=== PATIENT | female | born 1990 | race Caucasian/White ===

== ENCOUNTER 2022-06-27 21:14 | Emergency (ER) | payer MEDICAID, SELFPAY ==
[2022-06-27 21:15] VITALS: BP 122/62; PULSE 113; RESP 14; TEMP 37.1; O2SAT 100; BMI 30.1
[2022-06-27] MEDS: Naproxen 500 MG Tablet PO (22:02)
[2022-06-27] MEDS: Ondansetron ODT 4 MG Tablet PO (22:02)
[2022-06-28] MEDS: Acetaminophen 500 MG Tablet 1000 MG PO (00:11)
--- NOTE | 2022-06-28 00:11 | EDS_ITS ---
HPI History of Present Illness Chief Complaint: Nausea/Vomiting/Diarrhea Detail of Chief Complaint: Cough, chills, sore throat Informant: patient Onset/Context/Timing Onset: Today Current Severity: Moderate Maximum Severity: Moderate Narrative Narrative: Patient presents with complaints of body aches, sore throat, cough, nausea. She reportedly was exposed to someone with influenza A. She took NyQuil earlier this morning for her symptoms but has not had anything since. [facility] Medical History Anxiety Asthma Smoker Substance abuse Home Medications NK 06/27/22 [History Last Taken Unknown] Allergy/AdvReac Type Severity Reaction Status Date / Time No Known Allergies Allergy Verified 06/27/22 21:15 Social History Smoking Status: Current some day smoker tobacco type: cigarettes ROS ROS ED Constitutional Constitutional ED: Reports chills, fever(s) and subjective Eyes Eyes: Denies change in vision or discharge from eye(s) ENT ENT ED: Reports sore throat and other Details: Congestion ; Denies discharge from eye(s) or rhinorrhea Cardiovascular Cardiovascular: Denies chest pain or palpitations Respiratory/Chest Respiratory/Chest: Reports cough; Denies dyspnea Gastrointestinal Gastrointestinal: Reports abdominal pain, nausea and vomiting; Denies diarrhea Genitourinary Genitourinary ED: Denies dysuria Musculoskeletal Musculoskeletal: Reports myalgias; Denies back pain or extremity pain Integumentary Denies Abrasions or rash Neurologic Neurologic: Reports headache(s); Denies weakness Psychiatric Psychiatric: Denies anxiety or depression Allergic/Immunologic Allergic/Immunologic ED: Denies lip swelling or urticaria EXAM Physical Exam Const Vital Signs: 06/27/22 21:15 Temperature 98.7 F Temperature Source Temporal Pulse Rate 113 H Respiratory Rate 14 Blood Pressure 122/62 H Blood Pressure Mean 82 Pulse Ox 100 Oxygen Delivery Method Room Air Positive well nourished and well developed General Appearance ED: well developed HEENT Reports normocephalic and head/scalp atraumatic HEENT Narrative: 2+ tonsils. Uvula midline. No exudate. Eyes PERRL and EOMs intact bilaterally Neck supple Chest Wall inspection of chest normal and palpation of chest normal Resp normal respiratory effort and clear to auscultation bilaterally Cardio regular rhythm Rate: tachycardic GI GI Narrative: Abdomen is soft with no focal tenderness. Hypoactive but present bowel sounds noted. Palpation: soft Extremity normal to inspection Neuro oriented x3 and no sensory deficits noted Sensorium / Orientation: alert Motor Exam: strength 5/5 throughout Psych Mood & Affect: anxious Skin no rashes or lesions noted MDM MDM MDM Narrative Medical decision making narrative: Patient given Naprosyn and Zofran. COVID and influenza swab obtained. Treatment and Re-Evaluation Narrative: Swab for COVID and influenza are negative. At that time patient given Tylenol and throat lozenges. Rapid strep obtained and is negative. Patient advised that her symptoms are all viral in nature and need to run their course. Supportive care is discussed. Discharge Plan Triage Chief Complaint: Nausea/Vomiting/Diarrhea ED Provider: Ayanna Bautista Dx/Rx/DC Orders Clinical Impression: Viral syndrome Instructions: ED Viral Syndrome (Adult) Prescriptions: No Action NK Primary Care Provider: Care Physician,No Primary Referrals: Fast,Kesha, DO [Med Staff - Public Affairs Specialist] - As Needed Care Physician,No Primary [Primary Care Provider] - Disposition Disposition: Home, Self Care
[2022-06-28] MEDS: BENZOCAINE/MENTHOL 1 LOZENGE MUCOUS MEM (00:23)
[2022-06-28 00:25] VITALS: TEMP 37.1
== END 2022-06-28 00:26 | disposition home or self-care (01) ==
PROVIDERS: Emergency Provider Emergency Medicine; Visit Provider Emergency Medicine
DX: B34.9 Viral infection, unspecified (principal); F17.210 Nicotine dependence, cigarettes, uncomplicated; R11.2 Nausea with vomiting, unspecified; R19.7 Diarrhea, unspecified; J45.909 Unspecified asthma, uncomplicated
CPT/HCPCS: 87428; 87880; 99283